=== PATIENT | female | born 1985 | race Caucasian/White ===

== ENCOUNTER 2018-07-15 21:42 | Inpatient (IN) ==
[~2018-07-15 21:42] MED LIST: *HR* Nalbuphine 10 MG/ML AMPUL IVP PRN; Famotidine 20 MG/2 ML VIAL IVP PRN; Naloxone 0.4 MG/ML INJ IVP PRN; Ondansetron 4 MG/2 ML VIAL IVP PRN
[2018-07-15] MEDS ORDERED: Penicillin G Potassium 5,000,000 UNIT in 0.9 % Sodium Chloride Mini Bag 100 ML IVPB ONE (21:44)
[2018-07-15] MEDS ORDERED: Ringers Solution, Lactated 1,000 ML IVC SCH (21:45)
--- NOTE | 2018-07-15 22:09 | OB/GYN History & Physical ---
Date of Encounter: 07/15/18 Time of Encounter: 22:04 Assessment and Plan (1) 36 weeks gestation of Current visit: Yes Status: Acute admitted for delivery Dr. Hu aware of POC and approves of collaboration being appropriate for CNM unknown GBS status-will start prophylaxis (2) Pregestational diabetes mellitus, modified White class B Current visit: Yes Status: Acute Glucose on admission History of Present Illness Chief complaint: Spontaneous labor HPI: Ms. Prieto is a 33 year old female at 36w6d presents to labor and delivery with complaints of contractions that started earlier today and progressed to 3-4 min apart in the past 2 hours. Patient states pain has become more intense in the past hour. Patient denies LOF but reports bloody show and good movement. Patient's primary OB provider is Dr. Reynoso however, she has also seen MFM for AMA, pregestational DM that was diet controlled until . Patient currently takes Metformin 1000mg PO BID. Blood type: O+ Rubella: Immune Hep B:Nonreactive GBS: Unknown Past Med Surg Social Fam HX - Past Medical History Source: patient Medical history: thyroid disease Psychiatric history: no psych history - Past Surgical History Surgical History: other Additional surgical history: lasik eye surgery - Social History Smoking Status: Never smoker Smokeless Tobacco Status: No Alcohol use: none Drug use: none - Family History Mother Living Status: Still Living Hx Family Cardiac Disorders: No Hx Family Respiratory Disorders: No Hx Family Cancer: No Hx Family GI Disorders: No Hx Family Genitourinary Disorders: No Hx Family Endocrine Disorder: No Hx Family Musculoskeletal Disorders: No Hx Family Neuromuscular Disorders: No Hx Family Neurologic Disorders: No Hx Family HEENT Disorders: No Hx Family Autoimmune Disorders: No Hx Family Reproductive Disorders: No Hx Family Psychosocial Disorders: No Hx Family Medical Disorders: No Obstetrical History - Pregnancies : 1 Para: 0 Term: 0 : 0 Ab's: 0 Livin Medications and Allergies Aspirin 81 mg PO DAILY 06/13/18 [History] Vitamin Tablet 1 tab PO DAILY 06/13/18 [History] metFORMIN 1,000 mg PO BID 06/13/18 [History] Allergy/AdvReac Type Severity Reaction Status Date / Time No Known Allergies Allergy Verified 06/13/18 13:20 Review of System OB - Constitutional Constitutional ROS IM: no chills, no fever(s), no headache(s) - Cardiovascular Cardiovascular: no chest pain, no edema, no lightheadedness, no palpitations, no pedal edema, no syncope - Respiratory Respiratory: no cough - Gastrointestinal Gastrointestinal: no constipation, no diarrhea, no heartburn, no nausea, no vomiting - Genitourinary Genitourinary: vaginal discharge (bloody show), no dysuria, no flank pain, no urinary frequency, no urinary incontinence, no vaginal odor, no vaginal pruritis Exam - Constitutional Constitutional: well developed, well nourished, average body habitus - HEENT HEENT: Normocephaly, Mucus Membranes Moist - Neck Neck exam: full ROM, supple - Lungs Respiratory exam: CTAB - Cardiovascular Cardiovascular exam: RRR, +S1, +S2 - Abdomen Abdomen: Present: bowel sounds normal, gravid, non tender - Extremities Extremities exam: full ROM, normal capillary refill, normal inspection Deep Tendon Reflex Grade: 2+ Normal - Cervix Dilation: 6 (per RN) Effacement: 90 Station: 0 - Uterus Uterus exam: Present: normal size, normal contour - Anus/Rectum Anus/Rectum: Present: normal perianal skin - Comments Comments: FHR 145 bpm moderate variability +15x15 accels no decels noted. Contractions 2-3 min apart Results All other labs normal. - VTE Reasons for not Prescribing Prophylaxis: Treatment not Indicated - Low risk for VTE
[2018-07-15 22:31] LABS: Basophils # 0.1 K/mcL (0.0-0.2); Basophils % 0.3 %; Eosinophils # 0.1 K/mcL (0.0-0.6); Eosinophils % 0.6 %; Hemoglobin 12.3 g/dL (11.5-15.4); Immature Granulocytes % 0.4 % (0-4); Lymphocytes # 2.6 K/mcL (0.6-4.6); Lymphocytes % 17.2 %; Mean Corpuscular HGB Conc 32.4 g/dL (31.6-35.5); Mean Corpuscular Hemoglobin 26.5 pg (28.0-33.3); Mean Corpuscular Volume 81.7 fL (83.0-100.0); Mean Platelet Volume 10.9 fL (9.4-12.4); Monocytes % 6.8 %; Neutrophils # 11.4 K/mcL (1.6-8.9); Platelet Count 231 K/mcL (140-400); Red Blood Count 4.65 M/mcL (3.82-4.97); Red Cell Distribution Width 15.9 % (11.5-14.5); Segmented Neutrophils % 74.7 %
[2018-07-15] MEDS ORDERED: Epidural Premix (fent/bupiv) 110 ML EP ONE (22:37)
[2018-07-15] MEDS ORDERED: Lidocaine -MPF 2% 5 ML VIAL ONE (22:40)
[2018-07-15] MEDS ORDERED: Epidural Premix (fent/bupiv) 110 ML EP SCH (23:15)
--- NOTE | 2018-07-15 23:18 | Anesthesia Procedures ---
Addendum entered and electronically signed by Boo Win CRNA 07/16/18 11:29: Delivery Date: 07/16/18 Infant Delivery Time: 10:41 Original Note: Date of Encounter: 07/15/18 Time of Encounter: 22:53 Procedures: Anesthesia - Epidural/Spinal Patient ID/Chart reviewed: Yes Patient examined: Yes OB Eval: Gestational age: 36 OB Eval: : 1 OB Eval: Contractions: Non-stressed pattern Consent Obtained: Yes Supplemental Oxygen: None/Room Air Site Prep: Aseptic Technique, Sterile prep and drape, 0.5% Chlorhexidine/Alcohol Patient position: upright Local Anesthetic: Lidocaine 1% Amount of Local Anesthetic used: 2 Touhy Needle Gauge: 18 Touhy Needle Depth (cm): 7 Catheter Depth at Skin (cm): 11 Test Dose (1.5% Lido + Epi): Volume given (mls): 3 Test Dose Result: Negative Loading Dose Administered: Thru Catheter Infusion Med: 0.125% Bupivacaine w/ 2 mcg/ml Fentanyl Infusion Rate (mls/hr): [address]: Tegaderm, Tape Interspace Used: L4-L5 Loss of Resistance (DENNIS): Yes (saline) Blood: No CSF: No Paresthesia: No Procedure: vss though out procedure, FHR stable per RN's
--- NOTE | 2018-07-15 23:20 | Anesthesia Evaluation PreOp ---
Date of Encounter: 07/15/18 Time of Encounter: 22:52 - Past History Planned Operation: vaginal del, G1 spont 36wks Cardiac History: Denies any Significant Hx Pulmonary History: Denies Any Significant HX INDUSTRIAL REHABILITATION CONSULTANT History: Denies Any Significant HX Other Medical History: Diabetes Type II (gestational DM), Thyroid Anesthesia History: No Prior Anesthetic Complications, Past Anesthesia Alcohol Use: none Drug use: none Medications and Allergies Aspirin 81 mg PO DAILY 06/13/18 [History] Vitamin Tablet 1 tab PO DAILY 06/13/18 [History] metFORMIN 1,000 mg PO BID 06/13/18 [History] Allergy/AdvReac Type Severity Reaction Status Date / Time No Known Allergies Allergy Verified 06/13/18 13:20 Anesthesia Results - Labs 07/15/18 22:19 07/15/18 22:19 Anesthesia Exam - HEENT Pupil (Motor): Pupils equal Mallampati: III Teeth: Normal Oral Opening: Greater than 3 - INDUSTRIAL REHABILITATION CONSULTANT LOC: Oriented INDUSTRIAL REHABILITATION CONSULTANT Motor: Normal RUE, Normal LUE, Normal RLE, Normal LLE, Normal Face INDUSTRIAL REHABILITATION CONSULTANT Sensory: Normal: RUE, LUE, RLE, LLE, Face - Cardiac Rhythm: Regular Murmur: None - Pulmonary Breath Sounds: bilateral Clear Respiratory Effort: Symmetrical Anesthesia Assess/Plan ASA Score: 2 Level of consciousness: Cooperative, Oriented Anesthetic Plan: General, Spinal, Epidural Monitoring Plan: Standard Monitors Recovery Plan: PACU
--- NOTE | 2018-07-15 23:56 | OB Labor Progress Note ---
Date of Encounter: 07/15/18 Time of Encounter: 23:54 Labor Progress Note - Subjective Subjective: Patient resting comfortably with epidural in place. Patient denies any pain at this time. Caballero catheter draining clear yellow urine at this time. Discussed POC with patient. Patient denies any questions or concerns. - Cervix Cervix: 8/100/0 - Heart Tones Heart Tones: 145 bpm moderate variability +15x15 accels a variable was noted - Cloverly Cloverly: 4-5 min apart - Interventions Interventions: SVE, EFM reviewed - Plan Physician notified: No Plan: Continue labor management
[2018-07-16] MEDS: Penicillin G Potassium 2,500,000 UNIT in 0.9 % Sodium Chloride 100 ML IVPB SCH ×2 (02:25→06:00)
[2018-07-16] MEDS ORDERED: Acetaminophen 325 MG TABLET PO ONE (02:51)
[2018-07-16] MEDS ORDERED: Oxytocin 20 units/ LR 1000 mL 20 UNIT/1,000 ML BAG IVC ONE (08:38)
[2018-07-16] MEDS ORDERED: Oxytocin 20 units/ LR 1000 mL 20 UNIT/1,000 ML BAG IVC SCH ×2 (11:15→13:32)
--- NOTE | 2018-07-16 11:16 | OB/GYN Procedure Note ---
Delivery - Delivery Date: 07/16/18 Provider: Melissa Nixon Intrapartum events: none Delivery induction: none Delivery augmentation: rupture of membranes, pitocin (after 1 1/2 hours of pushing) Delivery monitor: external FHT, external uterine Anesthesia: epidural Quantitated Blood Loss: 200 - Infant (s) Infant A Delivery Date: 07/16/18 Delivery Time: 10:41 Presentation: vertex, compound (posterior) Position: OA Route of delivery: Gender: Female Viability: Viable Pounds: 5 Ounces: 10 Weight Gram: 2.56 kg at 1 minute: 8 at 5 mins: 9 Shoulder Dystocia: not encountered Specimens collected: cord blood Placenta: spontaneous, uterine exploration Cord: nuchal cord (x1), 3 umbilical vessels, nuchal reduced - Repair Episiotomy: none Laceration Description: Periurethral (hemostatic), Perineal - 1st Degree (repaired with 3-0 vicryl) - Complications Delivery complications: none - Disposition Mom disposition: stable in LDR disposition: stable in LDR - Comments Comments: Called to LDR patient feeling pressure. AROM moderate amount of clear fluid. Patient pushed with contraction and was effectively moving . Patient was 10/100/1. Patient wanted to continue to push at this time. Patient was placed in stirrups and prepped for delivery. Under maternal effort patient spontaneously delivered a female infant over a 1st degree perineal laceration. A nuchal cord was noted an easily reduced. A compound posterior hand was noted, Patient was able to push and delivered without difficulty. No shoulder dystocia or meconium was encountered. Infant was placed on maternal abdomen. Cord was clamped and cut after pulsations ceased. Cord blood was collected. 1st degree laceration was repaired with 3-0 vicryl. A right periurethral was noted but hemostatic not requiring repair. Placenta was then delivered spontaneously and visually intact. Pericare was provided, all counts correct. Both Mother and infant stable in LDR for 2 hour recovery.
[2018-07-16] MEDS ORDERED: Acetaminophen 325 MG TABLET PO PRN (13:32)
[2018-07-16] MEDS ORDERED: Measles/Mumps/Rubella Vacc 0.5 ML VIAL SQ PRN (13:32)
[2018-07-16] MEDS ORDERED: Ibuprofen 600 MG TABLET PO PRN (13:32)
[2018-07-16] MEDS ORDERED: *HR* HYDROcodone/Acet 5/325 mg TABLET PO PRN (13:32)
[2018-07-16] MEDS ORDERED: Benzocaine/Menthol 56 GM AEROSOL SPRAY TP PRN (13:32)
--- NOTE | 2018-07-17 08:22 | Discharge Summary ---
Date of Encounter: 07/17/18 Time of Encounter: 08:14 - Discharge Diagnosis (1) Status post vaginal delivery Priority: Primary Status: Acute Comments: Patient meeting day one milestones. Pain well-controlled with prescribed medications, tolerating regular diet Voiding with mild burning, otherwise, without difficulty. No bowel movement yet. Anticipate discharge today (2) First degree laceration of perineum during delivery, Priority: Secondary Status: Acute Comments: Ice pack to perineum as needed Dermoplast spray as needed Motrin for pain (3) Breast feeding status of mother Priority: Secondary Status: Acute Comments: support as needed Prescription for breast pump given to patient (4) Pregestational diabetes mellitus, modified White class B Priority: Secondary Status: Acute Comments: Patient was diet controlled prior to . She is to follow-up with her regular provider for diabetes management. - Discharge Medications Prescriptions: Breast Pump [BREAST PUMP] 1 each .ROUTE AD #1 each Naproxen [Naprosyn] 500 mg PO BID #30 tablet Home Medications: Aspirin 81 mg PO DAILY 06/13/18 [History] Vitamin Tablet 1 tab PO DAILY 06/13/18 [History] Acetaminophen [Tylenol] 650 mg PO Q6HR PRN tablet 07/17/18 [Rx] Benzocaine/Menthol [place] [Dermoplast [place]] 1 appl TP QID PRN aerosol 07/17/18 [Rx] Breast Pump [BREAST PUMP] 1 each .ROUTE AD #1 each 07/17/18 [Rx] Docusate [Colace] 100 mg PO BID capsule 07/17/18 [Rx] Ibuprofen [Motrin] 600 mg PO Q6HR PRN tablet 07/17/18 [Rx] Naproxen [Naprosyn] 500 mg PO BID #30 tablet 07/17/18 [Rx] Allergies/Adverse Reactions: Allergy/AdvReac Type Severity Reaction Status Date / Time No Known Allergies Allergy Verified 06/13/18 13:20 Data Procedures and tests throughout hospitalization: Laboratory Tests 07/15/18 07/15/18 07/16/18 22:19 22:19 05:50 WBC 15.2 H RBC 4.65 Hgb 12.3 Hct 38.0 MCV 81.7 L MCH 26.5 L MCHC 32.4 RDW 15.9 H Plt Count 231 MPV 10.9 Immature Gran % 0.4 Seg Neutrophils % 74.7 Lymphocytes % 17.2 Monocytes % 6.8 Eosinophils % 0.6 Basophils % 0.3 Neutrophils # 11.4 H Lymphocytes # 2.6 Monocytes # 1.0 Eosinophils # 0.1 Basophils # 0.1 Glucose 97 POC Glucose 119 H 07/16/18 22:22 WBC RBC Hgb Hct MCV MCH MCHC RDW Plt Count MPV Immature Gran % Seg Neutrophils % Lymphocytes % Monocytes % Eosinophils % Basophils % Neutrophils # Lymphocytes # Monocytes # Eosinophils # Basophils # Glucose POC Glucose 103 H Labs on day of discharge: Labs from last 24 hours 07/16/18 22:22 POC Glucose 103 H Date of admission: 07/15/18 21:42 Primary care physician: Rajan Taylor Consults: 07/16/18 13:32 Consult to Contract Loader [CONS] Routine Comment: Vaginal delivery, consult needed Discharging clinician: Elizabeth Verdugo Anticipated date of discharge: 07/17/18 - Patient Status Disposition: Home, Self-Care Condition: Good Functional capacity at discharge: independent ambulation Overall status at discharge: patient is progressing back to baseline - Discharge Instructions Follow Up With: Gabbie Sheldon DO [Primary Care Provider] - Zaina Reynoso DO [Partnered Physician] - - Diet and Activity Activity: resume usual activities as tolerated Diet: diabetic diet Hospital Course Reason for admission: active labor, IUP - , labor Delivery: Episiotomy: none Laceration: 1st degree Other procedures: none complications: none Discharge diagnosis: delivery baby: female Hospital course: Patient meeting day one milestones. Pain well-controlled with prescribed medications, tolerating regular diet Voiding with mild burning, otherwise without difficulty. No bowel movement yet. Anticipate discharge today - Delivery Date: 07/16/18 Provider: Melissa Nixon Intrapartum events: none Delivery induction: none Delivery augmentation: rupture of membranes, pitocin (after 1 1/2 hours of pushing) Delivery monitor: external FHT, external uterine Anesthesia: epidural Quantitated Blood Loss: 200 - (s) Infant A Delivery Date: 07/16/18 Infant Delivery Time: 10:41 Presentation: vertex, compound (posterior) Position: OA Route of delivery: Gender: Female Viability: Viable Pounds: 5 Ounces: 10 Weight Gram: 2.56 kg at 1 minute: 8 at 5 mins: 9 Shoulder Dystocia: not encountered Specimens collected: cord blood Placenta: spontaneous, uterine exploration Cord: nuchal cord (x1), 3 umbilical vessels, nuchal reduced - Repair Episiotomy: none Laceration Description: Periurethral (hemostatic), Perineal - 1st Degree (repaired with 3-0 vicryl) - Complications Delivery complications: none - Disposition Mom disposition: stable in LDR [place] disposition: stable in LDR - Comments Comments: Called to LDR patient feeling pressure. AROM moderate amount of clear fluid. Patient pushed with contraction and was effectively moving infant. Patient was 10/100/1. Patient wanted to continue to push at this time. Patient was placed in stirrups and prepped for delivery. Under maternal effort patient spontaneously delivered a female infant over a 1st degree perineal laceration. A nuchal cord was noted an easily reduced. A compound posterior hand was noted, Patient was able to push and delivered infant without difficulty. No shoulder dystocia or meconium was encountered. was placed on maternal abdomen. Cord was clamped and cut after pulsations ceased. Cord blood was collected. 1st degree laceration was repaired with 3-0 vicryl. A right periurethral was noted but hemostatic not requiring repair. Placenta was then delivered spontaneously and visually intact. Pericare was provided, all counts correct. Both Mother and infant stable in LDR for 2 hour recovery. Time Attestation: Total time spent providing and/or coordinating discharge services: Time Spent: Less than 30 minutes Exam - Constitutional Vitals: Temp Pulse Resp BP Pulse Ox 97.5 F L 86 14 113/78 97 07/17/18 03:55 07/17/18 03:55 07/17/18 03:55 07/17/18 03:55 07/17/18 03:55 General appearance IM: A&O X 3, pleasant, no acute distress, answers questions appropriately - Respiratory Respiratory exam: Present: CTAB - Cardiovascular Cardiovascular exam IM: Present: RRR, +S1, +S2 - GI/Abdominal GI/Abdominal exam IM: normal bowel sounds, soft - Rectal Rectal exam: deferred - External exam: normal external exam Uterine Tone: Firm Uterus Position: At Umbilicus, Right of Midline - Extremities Exam Extremities exam IM: Present: full ROM, normal capillary refill, normal i nspection, warm - Neurological Exam Neurological exam: alert, normal gait, oriented X3
[2018-07-17] MEDS ORDERED: Ibuprofen 400 MG TABLET PO PRN (08:27)
[2018-07-17 08:58] VITALS: BP 116/90
[2018-07-17] MEDS ORDERED: Prenatal Vit/FA 1 EACH TABLET PO SCH (09:00)
== END 2018-07-17 13:25 | disposition home or self-care (01) | DRG 805 ==
LOC: 1NENULAB → 1NENUOBS 07-16 13:25
PROVIDERS: ADMIT Advanced Practice Midwife; ATTEND Advanced Practice Midwife

== ENCOUNTER 2020-02-07 18:13 | Inpatient (IN) ==
[~2020-02-07 18:13] MED LIST changes: +*HR* FentaNYL (PF) 100 MCG/2 ML VIAL IVP PRN; -*HR* Nalbuphine 10 MG/ML AMPUL IVP PRN; +Azithromycin 500 MG in 0.9 % Sodium Chloride 250 ML IVPB ONE; +Lidocaine 1% 20 ML MDV ID PRN; +Metoclopramide 10 MG/2 ML VIAL IVP PRN
[2020-02-07] MEDS ORDERED: Ringers Solution, Lactated 1,000 ML IVC SCH (18:15)
[2020-02-07] MEDS ORDERED: Oxytocin 20 units/ LR 1000 mL 20 UNIT/1,000 ML BAG IVC ONE ×2 (18:22→21:21)
[2020-02-07] MEDS ORDERED: Ringers Solution, Lactated 1,000 ML ONE (18:22)
[2020-02-07] MEDS ORDERED: EPHEDrine 50 MG/ML VIAL IVP PRN (18:23)
[2020-02-07] MEDS ORDERED: Epidural Premix (fent/bupiv) 110 ML EP SCH (18:30)
[2020-02-07 18:32] LABS: Basophils % 0.3 %; Eosinophils # 0.1 K/mcL (0.0-0.6); Eosinophils % 0.7 %; Hematocrit 40.2 % (35.3-44.9); Hemoglobin 12.6 g/dL (11.5-15.4); Immature Granulocytes % 0.2 % (0-4); Lymphocytes # 2.5 K/mcL (0.6-4.6); Lymphocytes % 24.9 %; Mean Corpuscular HGB Conc 31.3 g/dL (31.6-35.5); Mean Corpuscular Hemoglobin 25.1 pg (28.0-33.3); Mean Corpuscular Volume 80.1 fL (83.0-100.0); Mean Platelet Volume 11.6 fL (9.4-12.4); Monocytes # 0.7 K/mcL (0.0-1.3); Monocytes % 7.3 %; Neutrophils # 6.6 K/mcL (1.6-8.9); Platelet Count 290 K/mcL (140-400); Red Blood Count 5.02 M/mcL (3.82-4.97); Red Cell Distribution Width 16.8 % (11.5-14.5); Segmented Neutrophils % 66.6 %; White Blood Count 9.9 K/mcL (4.3-11.1)
[2020-02-07] MEDS ORDERED: Ibuprofen 600 MG TABLET PO STA (19:50)
[2020-02-07] MEDS ORDERED: Lanolin 7 G OINT...G. TP PRN (21:50)
[2020-02-07] MEDS ORDERED: Acetaminophen 325 MG TABLET PO PRN (21:50)
[2020-02-07] MEDS ORDERED: Benzocaine/Menthol 56 GM AEROSOL SPRAY TP PRN (21:50)
[2020-02-07] MEDS ORDERED: Oxytocin 20 units/ LR 1000 mL 20 UNIT/1,000 ML BAG IVC SCH (21:50)
[2020-02-07] MEDS ORDERED: Insulin NPH 100 UNIT/ML (x5UNIT) SQ ONE (23:49)
[2020-02-08 04:37] LABS: Basophils % 0.2 %; Eosinophils % 0.3 %; Hematocrit 34.4 % (35.3-44.9); Immature Granulocytes % 0.2 % (0-4); Lymphocytes # 2.2 K/mcL (0.6-4.6); Lymphocytes % 18.2 %; Mean Corpuscular HGB Conc 31.4 g/dL (31.6-35.5); Mean Corpuscular Hemoglobin 25.3 pg (28.0-33.3); Mean Corpuscular Volume 80.6 fL (83.0-100.0); Mean Platelet Volume 11.5 fL (9.4-12.4); Monocytes # 0.9 K/mcL (0.0-1.3); Monocytes % 7.5 %; Neutrophils # 8.8 K/mcL (1.6-8.9); Platelet Count 193 K/mcL (140-400); Red Blood Count 4.27 M/mcL (3.82-4.97); Red Cell Distribution Width 16.5 % (11.5-14.5); Segmented Neutrophils % 73.6 %
[2020-02-08 04:39] LABS: Hemoglobin 10.8 g/dL (11.5-15.4)
[2020-02-08] MEDS: Ibuprofen 600 MG TABLET PO PRN ×2 (04:39→17:46)
[2020-02-08] MEDS: *HR* Metformin 500 MG TABLET PO SCH ×2 (07:58→17:45)
[2020-02-08] MEDS ORDERED: Prenatal Vit/FA 1 EACH TABLET PO SCH (09:00)
[2020-02-08 15:11] VITALS: BP 112/73
== END 2020-02-08 20:16 | disposition home or self-care (01) | DRG 807 ==
LOC: 1NENULAB → 1NENUOBS 22:38
PROVIDERS: ADMIT Obstetrics & Gynecology; ATTEND Obstetrics & Gynecology